=== PATIENT | female | born 1960 | race Caucasian/White ===

== ENCOUNTER 2020-08-21 14:57 | Emergency (ER) | payer MEDICARE, OTHER ==
[~2020-08-21 14:57] MED LIST: ABILIFY10 MG PO; ALLEGRA ALLERG180 MG PO; ATROVENT (00.2 MG/ML INH; AZITHROMYCIN250 MG PO; BENTYL10 MG PO; CALCIUM 1,0001 EACH PO; CEFDINIR300 MG PO; CELEXA20 MG PO; CENTRUM ADULTS1 EACH PO; CLARITIN10 MG PO; DESVENLAFAXINE25 MG PO; FEOSOL325 MG PO; FLONASE ALLER15.8 ML; FLUNISOLIDE25 ML; IPRAT-ALBUT 0.5-3 ML INH; K-DUR20 MEQ PO; KLONOPIN0.5 MG PO; LEVAQUIN750 MG PO; LIPITOR20 MG PO; LOPRESSOR50 MG PO; LOVAZA1 GM PO; MEDROL 4MG DOSEP4 MG PO; MOTRIN600 MG PO; MUCINEX 600MG600 MG PO; PERCOCET 5-3251 EACH PO; PREDNISONE 20MG20 MG PO; PRILOSEC20 MG PO; PROTONIX 40MG T40 MG PO; ROBAXIN500 MG PO; SINGULAIR10 MG PO; SPIRIVA 18MCG18 MCG INH; SYMBICORT 80-10.2 GM INH; VENTOLIN HFA IN18 GM INH; VOLTAREN **OUT75 MG PO; ZANTAC150 MG PO; ZOFRAN4 MG PO
== END 2020-08-21 16:15 | disposition left against medical advice (07) ==
LOC: FER 14:57
DX: R06.02 Shortness of breath (principal); R05 Cough; Z53.8 Procedure and treatment not carried out for other reasons

== ENCOUNTER 2021-06-26 09:59 | Day surgery (SDCO) | payer MEDICARE, OTHER ==
[~2021-06-26] VITALS: Ht 167.6 cm; Wt 95.0 kg
[2021-06-26 11:15] LABS: LACTIC ACID 2.2 mmol/L (0.4-1.9)
[2021-06-26 11:16] LABS: PRO-BNP 174 pg/mL (<125)
[2021-06-26 11:17] LABS: BASOPHIL 0.4 % (0-2); EOSINOPHIL 2.1 % (0-5); HCT 37.9 % (37.0-47.0); LYMPHOCYTE 13.7 % (15-48); MCH 29.6 pg (25.0-31.0); MCHC 31.7 g/dL (32.0-36.0); MCV 93.6 fL (78.0-100.0); MONOCYTE 8.1 % (0-12); MPV 10.7 fL (6.0-9.5); NEUTROPHIL 75.2 % (41-80); NRBC 0; PLT 226 K/uL (150-400); RBC 4.05 M/uL (4.20-5.40); RDW 13.8 % (11.5-14.0); WBC 9.9 K/uL (4.0-10.5)
[2021-06-26 11:19] LABS: ALBUMIN 3.3 g/dL (3.4-5.0); BILIRUBIN - TOTAL 0.2 mg/dL (0.2-1.0); BUN/CREAT RATIO (CALC) 9.3 RATIO; CREATININE 0.75 mg/dL (0.51-0.95); GLOBULIN (CALCULATION) 3.2 g/dL; MAGNESIUM 1.9 mg/dL (1.8-2.4); POTASSIUM 4.1 mmol/L (3.5-5.1); TOTAL PROTEIN 6.5 g/dL (6.4-8.2)
[2021-06-26 11:22] LABS: INR 1.04 (0.9-1.2); PTT 29.9 SECONDS (24.4-34.7)
[2021-06-26 11:24] LABS: D-DIMER 0.37 ug/mLFEU (0.00-0.41)
[2021-06-26 12:21] LABS: BILIRUBIN NEGATIVE (NEGATIVE); BLOOD NEGATIVE Ery/uL (NEGATIVE); CLARITY CLEAR (CLEAR); COLOR YELLOW (YELLOW); GLUCOSE (U) NORMAL (NORMAL); LEUKOCYTES 1+ Leu/uL (NEGATIVE); NITRITE NEGATIVE (NEGATIVE); PROTEIN NEGATIVE (NEGATIVE); SPECIFIC GRAVITY 1.025 (1.001-1.030); UROBILINOGEN 0.2 mg/dL (0.2-1.0); pH 6.5 (5.0-9.0)
[2021-06-26 12:31] LABS: BACTERIA 2+
[2021-06-26] MEDS ORDERED: PREDNISONE50 MG PO (17:41)
[2021-06-26] MEDS ORDERED: ZOCOR10 MG PO (17:41)
[2021-06-26] MEDS ORDERED: TRAZODONE HCL150 MG PO (17:43)
[2021-06-26] MEDS ORDERED: PRILOSEC20 MG PO (17:45)
[2021-06-26] MEDS ORDERED: DICLOFENAC SODI75 MG PO (17:47)
[2021-06-26] MEDS ORDERED: DALIRESP500 MCG PO (17:48)
[2021-06-26] MEDS ORDERED: INCRUSE ELLI62.5 MCG INH (17:49)
[2021-06-26] MEDS ORDERED: LYRICA50 MG PO (17:52)
[2021-06-26] MEDS ORDERED: ADVAIR HFA 115-28 GM INH (17:54)
[2021-06-26] MEDS ORDERED: CIMETIDINE400 MG PO (17:55)
[2021-06-26] MEDS ORDERED: DUPIXENT P300 MG/2 M SC (17:56)
[2021-06-26] MEDS ORDERED: AZELASTINE205.5 MCG1 (17:57)
[2021-06-26] MEDS ORDERED: FLUNISOLIDE25 ML (17:58)
[2021-06-26] MEDS ORDERED: VENTOLIN HFA IN18 GM INH (18:00)
[2021-06-26] MEDS ORDERED: ASPIRIN EC81 MG PO (23:54)
[2021-06-26] MEDS ORDERED: LOVAZA1 GM PO (23:55)
[2021-06-26] MEDS ORDERED: MUCINEX DM ER1 EAC1 PO (23:59)
[2021-06-27 06:37] LABS: BASOPHIL 0.5 % (0-2); EOSINOPHIL 3.3 % (0-5); HCT 39.4 % (37.0-47.0); HGB 12.1 g/dl (12.5-16.0); LYMPHOCYTE 22.5 % (15-48); MCH 29.2 pg (25.0-31.0); MCHC 30.7 g/dL (32.0-36.0); MCV 95.2 fL (78.0-100.0); MONOCYTE 10.1 % (0-12); NEUTROPHIL 63.1 % (41-80); NRBC 0; PLT 229 K/uL (150-400); RBC 4.14 M/uL (4.20-5.40); WBC 7.8 K/uL (4.0-10.5)
[2021-06-27 07:10] LABS: BUN/CREAT RATIO (CALC) 7.6 RATIO; CREATININE 0.79 mg/dL (0.51-0.95); MAGNESIUM 1.9 mg/dL (1.8-2.4); PHOSPHORUS 3.3 mg/dL (2.6-4.7); POTASSIUM 4.3 mmol/L (3.5-5.1)
[2021-06-27 07:16] LABS: PRO-BNP 97 pg/mL (<125)
[2021-06-27] MEDS ORDERED: NORVASC5 MG PO (09:12)
[2021-06-27] MEDS ORDERED: TOPROL XL 50 MG50 MG PO (09:12)
[2021-06-27] MEDS ORDERED: ZOCOR40 MG PO (09:12)
== END 2021-06-27 10:00 | disposition home or self-care (01) ==
LOC: FER 09:59 → FTCU 15:17 → FMS 21:37
PROVIDERS: Emergency Medicine; Nurse Practitioner; ADMIT Internal Medicine
DX: R07.89 Other chest pain (principal); I16.1 Hypertensive emergency; E78.5 Hyperlipidemia, unspecified; J44.9 Chronic obstructive pulmonary disease, unspecified; J45.909 Unspecified asthma, uncomplicated; K21.9 Gastro-esophageal reflux disease without esophagitis; M19.90 Unspecified osteoarthritis, unspecified site; E11.9 Type 2 diabetes mellitus without complications; Z96.642 Presence of left artificial hip joint; Z20.822 Contact with and (suspected) exposure to COVID-19; Z88.8 Allergy status to other drugs, medicaments and biological substances; Z87.891 Personal history of nicotine dependence
CPT/HCPCS: 36415; 71045; 71250; 80048; 80053; 81001; 83605; 83735; 83880; 84100; 84484; 85025; 85379; 85610; 85730; 87040; 93005; 94640; G0378; U0002

== ENCOUNTER → 2021-10-01 | Day surgery (SDC) | payer MEDICARE, OTHER ==
[~2021-10-01] VITALS: Ht 167.6 cm; Wt 95.5 kg
[~2021-10-01] MED LIST changes: +ADVAIR HFA 115-28 GM INH; +ASPIRIN EC81 MG PO; +AZELASTINE205.5 MCG1; +CIMETIDINE400 MG PO; +DALIRESP500 MCG PO; +DICLOFENAC SODI75 MG PO; +DUPIXENT P300 MG/2 M SC; +INCRUSE ELLI62.5 MCG INH; +LYRICA50 MG PO; +MUCINEX DM ER1 EAC1 PO; +NORVASC5 MG PO; +PREDNISONE50 MG PO; +TOPROL XL 50 MG50 MG PO; +TRAZODONE HCL150 MG PO; +ZOCOR10 MG PO; +ZOCOR40 MG PO
== END | disposition home or self-care (01) ==
LOC: FAS 06:51
DX: D17.79 Benign lipomatous neoplasm of other sites (principal); K64.4 Residual hemorrhoidal skin tags; R19.5 Other fecal abnormalities; K52.9 Noninfective gastroenteritis and colitis, unspecified; J44.9 Chronic obstructive pulmonary disease, unspecified; K21.9 Gastro-esophageal reflux disease without esophagitis; I10 Essential (primary) hypertension; Z80.0 Family history of malignant neoplasm of digestive organs; Z88.8 Allergy status to other drugs, medicaments and biological substances; Z91.048 Other nonmedicinal substance allergy status; Z87.891 Personal history of nicotine dependence; Z96.649 Presence of unspecified artificial hip joint
CPT/HCPCS: J2704; J7120

== ENCOUNTER 2022-01-21 14:16 | Emergency (ER) | payer MEDICARE, OTHER ==
[2022-01-21 16:29] LABS: BASOPHIL 0.2 % (0-2); EOSINOPHIL 0.1 % (0-5); LYMPHOCYTE 6.3 % (15-48); MCHC 31.6 g/dL (32.0-36.0); MONOCYTE 3.6 % (0-12); MPV 10.1 fL (6.0-9.5); NEUTROPHIL 88.2 % (41-80); NRBC 0; PLT 226 K/uL (150-400); RDW 14.5 % (11.5-14.0); WBC 12.5 K/uL (4.0-10.5)
[2022-01-21 17:28] LABS: ALBUMIN 3.3 g/dL (3.4-5.0); BILIRUBIN - TOTAL 0.2 mg/dL (0.2-1.0); BUN/CREAT RATIO (CALC) 21.8 RATIO; CREATININE 0.78 mg/dL (0.51-0.95); GLOBULIN (CALCULATION) 3.2 g/dL; POTASSIUM 4.2 mmol/L (3.5-5.1); TOTAL PROTEIN 6.5 g/dL (6.4-8.2)
[2022-01-21 21:44] LABS: BILIRUBIN NEGATIVE (NEGATIVE); BLOOD NEGATIVE Ery/uL (NEGATIVE); CLARITY CLEAR (CLEAR); COLOR YELLOW (YELLOW); GLUCOSE (U) NORMAL (NORMAL); LEUKOCYTES NEGATIVE Leu/uL (NEGATIVE); NITRITE NEGATIVE (NEGATIVE); PROTEIN NEGATIVE (NEGATIVE); UROBILINOGEN 0.2 mg/dL (0.2-1.0)
[2022-01-22] MEDS ORDERED: LASIX20 MG PO (03:05)
== END 2022-01-22 03:17 | disposition home or self-care (01) ==
LOC: FER 14:16
PROVIDERS: Emergency Medicine
DX: R60.0 Localized edema (principal); J44.9 Chronic obstructive pulmonary disease, unspecified; Z88.6 Allergy status to analgesic agent; Z88.8 Allergy status to other drugs, medicaments and biological substances; Z20.822 Contact with and (suspected) exposure to COVID-19
CPT/HCPCS: 36415; 71045; 80053; 81003; 83605; 83880; 84484; 85025; 87040; 93005; 93970; J0692; J1940; Q9967; U0002